=== PATIENT | female | born 1975 | race African-American/Black ===

== ENCOUNTER 2018-09-17 17:27 | Emergency (ER) | payer BC, OTHER ==
[~2018-09-17] VITALS: Ht 175.3 cm; Wt 142.9 kg
[~2018-09-17 17:27] MED LIST: NORG1TAB34 PO; ONDA4TAB10 PO
--- NOTE | 2018-09-17 17:40 | ED.ADGEN ---
Past History Past Medical History: No Pertinent History Past Surgical History: No Surgical History Alcohol Use: Occasionally Drug Use: None Adult General Chief Complaint Chief Complaint ".. My elbow got really sore after shoveling snow.. it almost hurt all the way up my Rt. arm and into my shoulder..." HPI HPI Patient is a 43 year old female who presents with above hx and complaints Rt. upper arm and elbow pain pain after shoveling snow. Pain is mostly localized in the Rt. Annular ligament, Anconeus, and insertion site of distal biceps. There is some generalized swelling of the elbow. No cording noted. Distal neuro vascular intact in Rt. hand. Cap refill less than 2 seconds in finger temps and equal to left hand. Ulnar, median and radial nerve pattern in hand is intact. Patient is right-hand dominant. Pronation and flexion exacerbates pain in Rt. elbow. Review of Systems Review of Systems Constitutional: Denies fever or chills [] Eyes: Denies change in visual acuity, redness, or eye pain [] HENT: Denies nasal congestion or sore throat [] Respiratory: Denies cough or shortness of breath [] Cardiovascular: No additional information not addressed in HPI [] GI: Denies abdominal pain, nausea, vomiting, bloody stools or diarrhea [] : Denies dysuria or hematuria [] Musculoskeletal: Complains of right elbow pain Integument: Denies rash or skin lesions [] Neurologic: Denies headache, focal weakness or sensory changes [] Endocrine: Denies polyuria or polydipsia [] All other systems were reviewed and found to be within normal limits, except as documented in this note. Family History Family History Noncontributory Current Medications Current Medications See nursing for home meds Allergies Allergies Allergies Coded Allergies Type Severity Reaction Last Updated Verified No Known Drug Allergies 04/04/15 No Physical Exam Physical Exam Constitutional: Moderately acute distress, non-toxic appearance. [] HENT: Normocephalic, atraumatic, bilateral external ears normal, oropharynx moist, no oral exudates, nose normal. [] Eyes: PERRLA, EOMI, conjunctiva normal, no discharge. [] Neck: Normal range of motion, no tenderness, supple, no stridor. [] Cardiovascular:Heart rate regular rhythm, no murmur [] Lungs & Thorax: Bilateral breath sounds clear to auscultation [] Abdomen: Bowel sounds normal, soft, no tenderness, no masses, no pulsatile masses. Obese Skin: Warm, dry, no erythema, no rash. [] Back: No tenderness, no CVA tenderness. [] Extremities: No tenderness, no cyanosis, no clubbing, ROM intact, no edema. [] Except findings in right elbow as per history of present illness Neurologic: Alert and oriented X 3, normal motor function, normal sensory function, no focal deficits noted. [] Psychologic: Affect anxious, judgement normal, mood normal. [] Current Patient Data Vital Signs Vital Signs Date Time Temp Pulse Resp B/P (MAP) Pulse Ox O2 Delivery O2 Flow Rate FiO2 09/17/18 19:44 65 20 98 Room Air Lab Results Laboratory Tests Test 09/17/18 18:45 09/17/18 19:57 Urine Collection Type Unknown Urine Color Yellow Urine Clarity Hazy Urine pH 6.0 Urine Specific Perrin >=1.030 Urine Protein Trace (NEG-TRACE) Urine Glucose (UA) Neg mg/dL (NEG) Urine Ketones (Stick) Trace mg/dL (NEG) Urine Blood Trace (NEG) Urine Nitrite Neg (NEG) Urine Bilirubin Neg (NEG) Urine Urobilinogen Dipstick 0.2 mg/dL (0.2 mg/dL) Urine Leukocyte Esterase Neg (NEG) Urine RBC 3-5 /HPF (0-2) Urine WBC 5-10 /HPF (0-4) Urine Squamous Epithelial Cells Mod /LPF Urine Bacteria Mod /HPF (0-FEW) Urine Mucus Marked /LPF Urine Opiates Screen Neg (NEG) Urine Methadone Screen Neg (NEG) Urine Barbiturates Neg (NEG) Urine Phencyclidine Screen Neg (NEG) Urine Amphetamine/Methamphetamine Neg (NEG) Urine Benzodiazepines Screen Neg (NEG) Urine Cocaine Screen Neg (NEG) Urine Cannabinoids Screen Neg (NEG) Urine Ethyl Alcohol Neg (NEG) POC Urine HCG, Qualitative hcg negative (Negative) EKG EKG [] Radiology/Procedures Radiology/Procedures My interpretation elbow film shows obvious fracture or dislocation.[] Course & Med Decision Making Course & Med Decision Making Pertinent Labs and Imaging studies reviewed. (See chart for details) Wear Crow wrap if it discomfort. Apply ice packs as needed for the next 3 days. Rest elbow. Take Tylenol and ibuprofen for pain. Follow-up primary care. For marked pain may take Vicoprofen up 4 times a day. May advance to moist heat after 3 days if no reinjury. Return if any concerns. [] Final Impression Final Impression 1. Over Use Syndrome 2. Tennis Elbow[]/ elbow strain Dragon Disclaimer Dragon Disclaimer This electronic medical record was generated, in whole or in part, using a voice recognition dictation system. SASHA ARANDA MD Sep 17, 2018 17:40
[2018-09-17] MEDS ORDERED: HYDR-1179 PO (18:25)
[2018-09-17 19:44] VITALS: BP 119/78
[2018-09-17 20:17] LABS: AMPHETAMINE/METHAMPHETAMINE NEG (NEG); BARBITURATES NEG (NEG); BENZODIAZEPINES NEG (NEG); CANNABINOIDS NEG (NEG); COCAINE NEG (NEG); METHADONE NEG (NEG); OPIATES NEG (NEG); PHENCYCLIDINE NEG (NEG)
[2018-09-17 20:36] LABS: BACTERIA,URINE MOD /HPF (0-FEW); BILIRUBIN,URINE NEG (NEG); CLARITY,URINE HAZY; COLOR,URINE YELLOW; GLUCOSE,URINE NEG (NEG); NITRITE,URINE NEG (NEG); UROBILINOGEN,URINE 0.2 mg/dL (0.2 mg/dL)
[2018-09-17 20:37] LABS: SQUAMOUS EPITHELIAL CELL,UR MOD /LPF
--- NOTE | 2018-09-17 22:42 | RAD ---
3 views right elbow AP lateral oblique HISTORY: Pain The visualized osseous structures appear normal. IMPRESSION: No acute findings. Electronically signed by: Saw Dias III, MD (09/17/2018 10:39 PM) [facility]
== END 2018-09-17 19:58 | disposition home or self-care (01) ==
LOC: ER 17:27
DX: M70.841 Other soft tissue disorders related to use, overuse and pressure, right hand (principal); M25.521 Pain in right elbow; G89.11 Acute pain due to trauma; X50.3XXA Overexertion from repetitive movements, initial encounter; Y93.H1 Activity, digging, shoveling and raking; Y92.89 Other specified places as the place of occurrence of the external cause; Y99.8 Other external cause status
CPT/HCPCS: 36415; 73080; 80307; 81001; 81025; 87086; 99283; 99284

== ENCOUNTER 2018-10-07 14:32 | Emergency (ER) | payer BC, OTHER ==
[~2018-10-07] VITALS: Ht 175.3 cm; Wt 153.8 kg
[~2018-10-07 14:32] MED LIST changes: +HYDR-1179 PO
[2018-10-07 14:44] VITALS: BP 109/68
--- NOTE | 2018-10-07 14:57 | PHYS DOC ---
Past History Past Medical History: Anxiety, Depression, Hypertension Past Surgical History: No Surgical History Alcohol Use: Occasionally Drug Use: None Adult General Chief Complaint Chief Complaint: SORE THROAT HPI HPI 43-year-old female presents with 2 day history of sore throat. She states it is very hard to swallow and she has decreased voice strength. She denies cough, diarrhea, shortness of breath. The patient has felt feverish but has had no measured fever. She denies any other complaints Review of Systems Review of Systems Constitutional: Denies fever or chills [] Eyes: Denies change in visual acuity, redness, or eye pain [] HENT: sore throat [] Respiratory: Denies cough or shortness of breath [] Cardiovascular: No additional information not addressed in HPI [] GI: Denies abdominal pain, nausea, vomiting, bloody stools or diarrhea [] : Denies dysuria or hematuria [] Musculoskeletal: Denies back pain or joint pain [] Integument: Denies rash or skin lesions [] Neurologic: Denies headache, focal weakness or sensory changes [] Endocrine: Denies polyuria or polydipsia [] All other systems were reviewed and found to be within normal limits, except as documented in this note. Allergies Allergies Allergies Coded Allergies Type Severity Reaction Last Updated Verified No Known Drug Allergies 04/04/15 No Physical Exam Physical Exam Constitutional: Well developed, obese, well nourished, no acute distress, non- toxic appearance. [] HENT: Normocephalic, atraumatic, bilateral external ears normal, oropharynx erythematous without exudate. [] Eyes: PERRLA, EOMI, conjunctiva normal, no discharge. [] Neck: Normal range of motion, no tenderness, supple, no stridor. [] Cardiovascular:Heart rate regular rhythm, no murmur [] Lungs & Thorax: Bilateral breath sounds clear to auscultation [] Abdomen: Bowel sounds normal, soft, no tenderness, no masses, no pulsatile masses. [] Skin: Warm, dry, no erythema, no rash. [] Back: No tenderness, no CVA tenderness. [] Extremities: No tenderness, no cyanosis, no clubbing, ROM intact, no edema. [] Neurologic: Alert and oriented X 3, normal motor function, normal sensory function, no focal deficits noted. [] Psychologic: Affect normal, judgement normal, mood normal. [] Current Patient Data Vital Signs Vital Signs Date Time Temp Pulse Resp B/P (MAP) Pulse Ox O2 Delivery O2 Flow Rate FiO2 10/07/18 14:44 99.0 78 18 100 Room Air EKG EKG [] Radiology/Procedures Radiology/Procedures [] Course & Med Decision Making Course & Med Decision Making Pertinent Labs and Imaging studies reviewed. (See chart for details) Patient's rapid strep is negative. This is likely a viral URI. I have advised her on symptomatic treatment. She is stable for discharge at this time. [] Dragon Disclaimer Dragon Disclaimer This electronic medical record was generated, in whole or in part, using a voice recognition dictation system. Departure Departure: Referrals: VIVIANA CAMPOVERDE MD (PCP) COLEMAN YEUNG DO Oct 07, 2018 14:57
== END 2018-10-07 15:33 | disposition home or self-care (01) ==
LOC: ER 14:32
DX: J02.9 Acute pharyngitis, unspecified (principal); R13.10 Dysphagia, unspecified; I10 Essential (primary) hypertension; F41.9 Anxiety disorder, unspecified; F32.9 Major depressive disorder, single episode, unspecified
CPT/HCPCS: 87070; 87880; 99283

== ENCOUNTER 2021-02-11 22:20 | Observation (INO) | payer OTHER ==
[~2021-02-11] VITALS: Ht 175.3 cm; Wt 165.9 kg
[~2021-02-11 22:20] MED LIST changes: -NORG1TAB34 PO; +NORG1TAB70 PO
--- NOTE | 2021-02-11 22:25 | PHYS DOC ---
Past History Past Medical History: Anxiety, Depression, Diabetes, Hypertension Past Surgical History: No Surgical History Alcohol Use: Occasionally Drug Use: None General Adult HPI: HPI: ".. I woke up with a swollen tongue and lips.... " " This has never happen before..." Patient is a 45 year old female who presents with above hx and complaints into edema of the lips and tongue. Patient does take advice lisinopril blood pressure and also did eat shrimp tonight. Patient denies any previous problems with intake of shrimp or iodine. Patient denies any recent travel. Patient denies any new creams, soaps or new foods. Patient normally follows with Dr. Campoverde. No recent travel. No specific ill contacts. Does have a history of hypertension,DM, anxiety, depression and obesity. Review of Systems: Review of Systems: Constitutional: Denies fever or chills Eyes: Denies change in visual acuity HENT: Complains of nasal congestion, swollen tongue and lips Respiratory: Complaints of shortness of breath Cardiovascular: Denies chest pain or edema GI: Denies abdominal pain, nausea, vomiting, bloody stools or diarrhea : Denies dysuria Musculoskeletal: Denies back pain or joint pain Integument: Denies rash Neurologic: Denies headache, focal weakness or sensory changes Endocrine: Denies polyuria or polydipsia Lymphatic: Denies swollen glands Psychiatric: Denies depression or anxiety Family History: Family History: Noncontributory to presentation Current Medications: Current Meds: See nursing for home meds Allergies: Allergies: Allergies Coded Allergies Type Severity Reaction Last Updated Verified No Known Drug Allergies 04/04/15 No Physical Exam: PE: Constitutional: Moderate acute distress, non-toxic appearance. [] HENT: Normocephalic, atraumatic, bilateral external ears normal, oropharynx moist, markedly swollen tongue and lips, no oral exudates, nose swollen turbinates and clear rhinorrhea Eyes: PERRLA, EOMI, conjunctiva normal, no discharge. [] Neck: Normal range of motion, no tenderness, supple, no stridor. [] Cardiovascular:Heart rate regular rhythm, no murmur [] Lungs & Thorax: Bilateral breath sounds equal apex with few scattered wheezes on auscultation [] Abdomen: Bowel sounds normal, soft, no tenderness, no masses, no pulsatile masses. Obese. Skin: Warm, dry, no erythema, no rash. [] Back: No tenderness, no CVA tenderness. [] Extremities: No tenderness, no cyanosis, no clubbing, ROM intact, no edema. [] Neurologic: Alert and oriented X 3, normal motor function, normal sensory function, no focal deficits noted. [] Psychologic: Affect very anxious, judgement normal, mood normal. [] EKG: EKG: My interpretation EKG shows sinus rhythm at 83 bpm. There is left axis. No findings of acute STEMI of contralateral changes. [] Radiology/Procedures: Radiology/Procedures: [][address] [address] IMAGING REPORT Signed PATIENT: KRANTHI MCGOVERN ACCOUNT: [id number] : 1975 LOCATION: ER AGE: 45 SEX: F EXAM STATUS: PRE ER ORD. PHYSICIAN: SASHA ARANDA MD REASON: allergic Rx dyspnea PROCEDURE: PORTABLE CHEST 1V Study: XR CHEST 1V Indication: Dyspnea. Comparison: None. Findings: Unremarkable cardiomediastinal silhouette and maryanne. No confluent infiltrate, pleural effusion or pneumothorax. Mild bibasilar volume loss. Impression: No acute radiographic abnormality of the chest. Electronically signed by: MALCOLM SANTORO MD (02/11/2021 11:45 PM) [facility] DICTATED AND SIGNED BY: MALCOLM SANTORO MD DATE: 02/11/21 1754 CC: SASHA ARANDA MD; VIVIANA CAMPOVERDE MD ~MTH0 0 Heart Score: C/O Chest Pain: N/A HEART Score for Chest Pain: HEART Score for Chest Pain Response (Comments) Value History Slighlty/Non-Suspicious 0 ECG Nonspecific Repolarizatio 1 Age < 45 0 Risk Factors 1 or 2 Risk Factors 1 Troponin < Normal Limit 0 Total 2 Risk Factors: Risk Factors: DM, Current or recent (<one month) smoker, HTN, HLP, family history of CAD, obesity. Risk Scores: Score 0 - 3: 2.5% MACE over next 6 weeks - Discharge Home Score 4 - 6: 20.3% MACE over next 6 weeks - Admit for Clinical Observation Score 7 - 10: 72.7% MACE over next 6 weeks - Early Invasive Strategies Course & Med Decision Making: Course & Med Decision Making Pertinent Labs and Imaging studies reviewed. (See chart for details) Discussed options for the treatment with patient. Discussed presentation testing and treatment plan with . Patient may be having allergic reaction to strep but suspect it is more likely due to lisinopril combination her blood pressure. Recommend patient not take lisinopril again. Patient will benefit for observation and further treatment to service. Impression: 1. Acute angioedema lips and tongue 2. Mild elevation of D- dimer 0.73 [] Dragon Disclaimer: Dragon Disclaimer: This electronic medical record was generated, in whole or in part, using a voice recognition dictation system. Departure Departure: Referrals: VIVIANA CAMPOVERDE MD (PCP) Erika Disclaimer This chart was dictated in whole or in part using Voice Recognition software in a busy, high-work load, and often noisy Emergency Department environment. It may contain unintended and wholly unrecognized errors or omissions. Dragon Disclaimer This chart was dictated in whole or in part using Voice Recognition software in a busy, high-work load, and often noisy Emergency Department environment. It may contain unintended and wholly unrecognized errors or omissions. SASHA ARANDA MD Feb 11, 2021 22:25
[2021-02-11] MEDS ORDERED: IV RINGERS SOLUTION,LACTATED 1,000 ML IV SCH (23:00)
[2021-02-11] MEDS ORDERED: ALBUTEROL SULFATE 8GM INHALER. INH ONE (23:00)
[2021-02-11] MEDS ORDERED: diphenhydrAMINE 50 MG/ML VIAL IV ONE (23:00)
[2021-02-11] MEDS ORDERED: methylPREDNISolone SOD SUCC PF 125 MG/2 ML VIAL. IV ONE (23:00)
[2021-02-11] MEDS ORDERED: MAGNESIUM HYDROXIDE 2,400 MG/30 ML ORAL.SUSP. PO ONE (23:00)
[2021-02-11] MEDS ORDERED: FAMOTIDINE 20 MG/2 ML VIAL IVP ONE (23:00)
[2021-02-11 23:05] LABS: BASO % 0 % (0-3); EOS # 0.1 x10^3/uL (0.0-0.7); EOS % 1 % (0-3); HEMATOCRIT 41.4 % (36.0-47.0); HEMOGLOBIN 13.6 g/dL (12.0-15.5); LYMPH # 2.2 x10^3/uL (1.0-4.8); LYMPH % 24 % (24-48); MEAN CORPUSCULAR HEMOGLOBIN 31 pg (25-35); MEAN CORPUSCULAR HGB CONC 33 g/dL (31-37); MEAN CORPUSCULAR VOLUME 95 fL (79-100); MONO # 0.3 x10^3/uL (0.0-1.1); MONO % 4 % (0-9); NEUT # 6.4 x10^3uL (1.8-7.7); NEUT % 71 % (31-73); PLATELET COUNT 343 x10^3/uL (140-400); RED BLOOD COUNT 4.36 x10^6/uL (3.50-5.40); RED CELL DISTRIBUTION WIDTH 14.5 % (11.5-14.5)
[2021-02-11 23:09] LABS: CALCIUM 8.8 mg/dL (8.5-10.1); CREATININE 0.9 mg/dL (0.6-1.0); GFR 82.7
[2021-02-11 23:22] LABS: ALBUMIN 3.5 g/dL (3.4-5.0); DIRECT BILIRUBIN 0.1 mg/dL (0.0-0.2); MAGNESIUM 1.8 mg/dL (1.8-2.4); TOTAL BILIRUBIN 0.4 mg/dL (0.2-1.0); TOTAL PROTEIN 6.7 g/dL (6.4-8.2)
--- NOTE | 2021-02-11 23:48 | RAD ---
Study: XR CHEST 1V Indication: Dyspnea. Comparison: None. Findings: Unremarkable cardiomediastinal silhouette and maryanne. No confluent infiltrate, pleural effusion or pneu mothorax. Mild bibasilar volume loss. Impression: No acute radiographic abnormality of the chest. Electronically signed by: MALCOLM SANTORO MD (02/11/2021 11:45 PM) [facility]
[2021-02-12] MEDS ORDERED: IV RINGERS SOLUTION,LACTATED 1,000 ML IV ONE (01:15)
[2021-02-12] MEDS ORDERED: ACETAMINOPHEN 325 MG TABLET PO PRN (01:15)
[2021-02-12] MEDS ORDERED: ONDANSETRON PF 4 MG/2 ML VIAL. IVP PRN (01:15)
[2021-02-12 03:00] VITALS: BP 131/86
[2021-02-12] MEDS ORDERED: MEDR150D3 IM (03:44)
[2021-02-12] MEDS ORDERED: ALBU2.5V8 IH (03:44)
[2021-02-12] MEDS ORDERED: MONT10TA80 PO (03:44)
[2021-02-12] MEDS ORDERED: LISI1TAB37 PO (03:44)
[2021-02-12] MEDS ORDERED: ESCITALOPRAM OX10 MG PO (03:44)
[2021-02-12] MEDS: IPRATRPIUM/ALBUTEROL 0.5/2.5MG 3 ML NEBU. NEB SCH ×2 (05:41→09:32)
[2021-02-12 06:09] VITALS: BP 120/77
[2021-02-12] MEDS ORDERED: FAMOTIDINE 20 MG/2 ML VIAL IVP SCH (09:00)
[2021-02-12] MEDS ORDERED: methylPREDNISolone SOD SUCC PF 125 MG/2 ML VIAL. IV SCH (09:00)
[2021-02-12 10:42] VITALS: BP 134/87
[2021-02-12] MEDS ORDERED: ALBUTEROL SULFATE 2.5 MG/3 ML NEBU. IH PRN (12:15)
[2021-02-12] MEDS ORDERED: NON FORMULARY ITEM (Medroxyprogesterone Acetate (Depo-Provera) 1 ML) IM SCH (12:15)
[2021-02-12] MEDS ORDERED: LOSA1TAB19 PO (12:20)
[2021-02-12] MEDS ORDERED: predniSONE 10 MG TABLET PO ONE (13:00)
--- NOTE | 2021-02-12 13:55 | SSS ---
ADMIT DATE: 02/12/2021 HISTORY OF PRESENT ILLNESS: The patient is a 45-year-old female patient who presented to the Emergency Room with complaint of marked swollen tongue and lips. She stated that she has difficulty talking. Denied any shortness of breath or difficulty swallowing. Her tongue was markedly swollen as well as both upper and lower lips and the lips ____ tingling and numb. According to her description, the patient stated that she ate her shrimp that she has eaten numerous times, nothing ____ difference and was wondering what might have changed the Sweet [place], but however, on further questioning her, she stated that she is also on lisinopril. Furthermore, she stated that since we have started her on lisinopril, she has had this dry cough that was unable to find an explanation too. The patient denied any recent travel or ill contacts. Her daughters, possibly her mother ate the same food without any problem. She was evaluated in the Emergency Room and was diagnosed with acute angioneurotic edema for which she received IV Solu-Medrol, famotidine as well as diphenhydramine and was admitted for further evaluation and treatment. PAST MEDICAL HISTORY: Significant for hypertension, type 2 diabetes mellitus, anxiety and depression as well as morbid obesity. PAST SURGICAL HISTORY: Unremarkable. ALLERGIES: She has no known drug allergies. MEDICATIONS: She is currently on the following medications: She is on albuterol sulfate 2 puffs every 4-6 hours as needed, lisinopril/hydrochlorothiazide 20/12.5 mg daily, escitalopram oxalate 10 mg once a day, montelukast 10 mg once a day, medroxyprogesterone acetate or Depo-Provera 1 mL intramuscular every 3 months as control. FAMILY HISTORY: She has one sister older and alive. She did have an ovarian cancer for which she is treated and she is in remission. Her father at the age of 58 because of pneumonia and congestive heart failure. Mother is still alive at age of 62 and has stage IV breast cancer; however, she is in remission since the last 15 years. SOCIAL HISTORY: She is , has 2 daughters. Never smoked. Does drink alcohol occasionally. Does not use any drugs. 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 REVIEW OF SYSTEMS: As per history of present illness. PHYSICAL EXAMINATION: GENERAL: On arrival to the Emergency Room, she looked well and was clearly in no apparent respiratory distress. No pallor, jaundice, cyanosis, no lymphadenopathy, no thyromegaly. No jugular venous distention or edema. VITAL SIGNS: Her heart rate was 103, blood pressure was 146/99, temperature was 99.1, respiratory rate was 97 and her oxygen saturation was 97% on room air. HEENT: Normocephalic, atraumatic. NECK: Supple. HEART: Showed normal first and second heart sounds, no gallop, rub or murmur. CHEST: Was clear to auscultation. She has a few scattered wheezes on auscultation. ABDOMEN: Distended, soft, nontender. NEUROLOGIC: She was awake, alert, oriented x 3 with normal motor and sensory function with no obvious focal deficit. On arrival, she was very anxious; however, her judgment and mood were normal. DIAGNOSTIC DATA: Her EKG showed that she was in sinus rhythm with a rate of 83 beats per minute. There is left axis. No findings of acute STEMI. Her chest x-ray showed unremarkable cardiomediastinal silhouette and hilum. No confluent infiltrate, pleural effusion, or pneumothorax. Mild bibasilar volume loss. LABORATORY DATA: Her lab work showed that her white cell count was 9000, hemoglobin 14, hematocrit 41, MCV 95 and platelet count 343,000 with normal manual differential. The PTT, INR and PT are all normal. The D-dimer was slightly elevated at 0.73. Her chemistry showed a serum sodium 139, potassium 4, chloride 107, bicarbonate 28, anion gap of 7, BUN 11, creatinine 0.9. Estimated GFR was 82 mL per minute. Glucose was high at 273, calcium was 8.8, total magnesium 1.8. Total bilirubin, AST, ALT, alkaline phosphatase were normal. Her two sets of cardiac enzymes were negative. Beta natriuretic peptide was 119. Total protein 6.7, albumin was 3.5, lipase was 126. The patient was given a liter of lactated Ringer, diphenhydramine, methylprednisolone 125 mg, famotidine, albuterol sulfate and was admitted for further evaluation and treatment. When I saw her this afternoon, she was resting slightly propped up in bed, in no apparent respiratory distress. She was awake, alert with no difficulty talking, has no shortness of breath. She was able to eat and drink without any difficulty. PHYSICAL EXAMINATION: GENERAL: When I examined her, she looked well and was clearly in no apparent respiratory distress. No pallor, jaundice, cyanosis, no thyromegaly. No jugular venous distention or edema. VITAL SIGNS: Her heart rate was 66, blood pressure 135/92, temperature was 99.7, respiratory rate was 18 and oxygen saturation was 97% on room air. HEENT: Normocephalic, atraumatic. NECK: Supple. HEART: Showed normal first and second heart sounds, no gallop, rub or murmur. CHEST: Clear to auscultation. No crepitation or rhonchi. ABDOMEN: Distended, soft, nontender. NEUROLOGIC: She was grossly intact. PLAN: I explained to the patient that what she has is probably a side effect of the lisinopril, so we will discontinue that and start her on losartan, which is an angiotensin receptor carlitos. She was getting also the hydrochlorothiazide 12.5. She will be discharged on a tapering course of steroids, Benadryl and famotidine and advised her to follow up with her primary care physician and make sure that she does not take the lisinopril. MAKSIM/LUIS ALBERTO/IQB DR: Angeline TID: [id number]
[2021-02-12] MEDS ORDERED: MONTELUKAST 10 MG TABLET. PO SCH (21:00)
[2021-02-13] MEDS ORDERED: CITALOPRAM 20 MG TABLET. PO SCH (09:00)
[2021-02-13] MEDS ORDERED: NON FORMULARY ITEM (Escitalopram Oxalate 1 TAB) PO SCH (09:00)
== END 2021-02-12 14:10 | disposition home or self-care (01) ==
LOC: ER 22:20 → 1 SOUTH 02-12 01:04
PROVIDERS: ADMIT Internal Medicine; ATTEND Internal Medicine
DX: T78.3XXA Angioneurotic edema, initial encounter (principal); R22.0 Localized swelling, mass and lump, head; I10 Essential (primary) hypertension; E11.9 Type 2 diabetes mellitus without complications; F41.9 Anxiety disorder, unspecified; F32.9 Major depressive disorder, single episode, unspecified; E66.01 Morbid (severe) obesity due to excess calories; Z79.899 Other long term (current) drug therapy; Z68.43 Body mass index [BMI] 50.0-59.9, adult
CPT/HCPCS: 36415; 71045; 80048; 80076; 82550; 83690; 83735; 83880; 84443; 84484; 85025; 85379; 85610; 85730; 93005; 96374; 96375; 96376; 99285; G0378; J1200; J2930; J3490; J7120; J7512; G0379

== ENCOUNTER → 2021-10-06 | Outpatient (CLI) | payer OTHER ==
[~2021-10-06] MED LIST changes: +ALBU2.5V8 IH; +ESCITALOPRAM OX10 MG PO; +LISI1TAB37 PO; +LOSA1TAB19 PO; +MEDR150D3 IM; +MONT10TA80 PO
--- NOTE | 2021-10-06 11:13 | RAD ---
Site ID: [id number] EXAMINATION: XR LT WRIST 3VIEWS. HISTORY: 46 years Female Reason: RECENT FALL ON WRIST, PAIN / : . COMPARISON: None. FINDINGS: There is a well-corticated elongated ossification now measuring 5 mm seen along the radial aspect of the scaphoid bone. The scaphoid appears to be slightly rotated. This is perhaps related to an old inj ury. No acute fracture identified. No dislocation or radiopaque foreign body. No arthritic changes s een. IMPRESSION: Findings may relate to sequela of prior injury. No acute fracture Electronically signed by: Jono Estrada MD (10/06/2021 11:10 AM) [id number]
== END ==
LOC: RAD 10:45
PROVIDERS: ATTEND Physician Assistant
DX: M89.8X8 Other specified disorders of bone, other site (principal); M25.532 Pain in left wrist
CPT/HCPCS: 73110